=== PATIENT | female | born 1975 | race African-American/Black ===

== ENCOUNTER → 2016-10-30 | Outpatient (CLI) | payer OTHER | LOC: OD 07:59 | PROVIDERS: ATTEND Podiatrist Foot & Ankle Surgery | DX: M20.11 Hallux valgus (acquired), right foot (principal) ==

== ENCOUNTER 2016-11-21 09:54 | Day surgery (SDC) | payer OTHER ==
[2016-11-18 18:31] LABS: ABSOLUTE EOSINOPHILS # (AUTO) 0.2 10^3/uL (0.0-0.6); ABSOLUTE LYMPHOCYTES (AUTO) 3.3 10^3/uL (0.5-4.7); ABSOLUTE MONOCYTES (AUTO) 0.7 10^3/uL (0.1-1.4); ABSOLUTE NEUT (AUTO) 4.1 10^3/uL (1.7-8.2); BASOPHILS % (AUTO) 0.6 % (0-2); EOSINOPHILS % (AUTO) 2.9 % (0-6); HEMATOCRIT 37.9 % (36.0-47.0); HEMOGLOBIN 12.7 g/dL (12.0-15.5); HGB HCT DIFFERENCE 0.2; LYMPHOCYTES % (AUTO) 39.1 % (13-45); MEAN CORPUSCULAR HEMOGLOBIN 29.9 pg (27.0-33.4); MEAN CORPUSCULAR HGB CONC 33.4 g/dL (32.0-36.0); MEAN CORPUSCULAR VOLUME 89 fl (80-97); MONOCYTES % (AUTO) 8.6 % (3-13); RED BLOOD COUNT 4.24 10^6/uL (3.72-5.28); RED CELL DISTRIBUTION WIDTH 13.8 % (11.5-14.0); SEGMENTED NEUTROPHILS % (AUTO) 48.8 % (42-78); WHITE BLOOD COUNT 8.4 10^3/uL (4.0-10.5)
[2016-11-18 18:38] LABS: APPEARANCE,URINE SLIGHTLY-CLOUDY; BILIRUBIN,URINE NEGATIVE (NEGATIVE); GLUCOSE, URINE NEGATIVE (NEGATIVE); KETONES,URINE NEGATIVE (NEGATIVE); LEUKOCYTE ESTERASE,URINE NEGATIVE (NEGATIVE); NITRITE,URINE NEGATIVE (NEGATIVE); PROTEIN,URINE NEGATIVE (NEGATIVE); URINE SPECIFIC GRAVITY 1.016; UROBILINOGEN,URINE NEGATIVE mg/dL (<2.0)
[~2016-11-21 09:54] MED LIST: CEFAZOLIN 1 GM/D5W RTU 1 GM/50 ML RTUPB IV PRN; RINGERS SOLUTION,LACTATED 1,000 ML IV PRN
[2016-11-21] MEDS ORDERED: LIDOCAINE 2% INJ (20 MG/ML) 20 ML MDV ONE (10:53)
[2016-11-21] MEDS ORDERED: BUPIVACAINE HCL 0.5 % INJ/PF 30 ML SDV ONE (10:53)
[2016-11-21] MEDS ORDERED: MIDAZOLAM 2 MG/2 ML INJ ONE (11:05)
[2016-11-21] MEDS ORDERED: ACETAMINOPHEN 100 ML IV ONE (11:05)
[2016-11-21] MEDS ORDERED: ONDANSETRON HCL INJ/PF 4 MG/2 ML SDV ONE (11:05)
[2016-11-21] MEDS ORDERED: PROPOFOL INJ 200 MG/20 ML VIAL IV ONE (11:06)
[2016-11-21] MEDS ORDERED: CEFAZOLIN 1 GM/D5W RTU 1 GM/50 ML RTUPB IV ONE (13:31)
[2016-11-21] MEDS ORDERED: FENTANYL CITRATE INJ/PF 100 MCG/2 ML AMPUL ONE (13:56)
--- NOTE | 2016-11-21 15:48 | SURGICARE OPERATIVE REPORT E ---
[facility] Report NAME: JOSE ROBERTO DELGADILLO AGE: 41Y DATE OF SURGERY: 11/21/2016 ROOM: PREOPERATIVE DIAGNOSIS: SEVERE HALLUX ABDUCTOVALGUS DEFORMITY RIGHT FOOT. POSTOPERATIVE DIAGNOSIS: SEVERE HALLUX ABDUCTOVALGUS DEFORMITY RIGHT FOOT. OPERATION: Nils bunionectomy with external fixation first metatarsal head. Thaddeus osteotomy, base proximal phalanx with internal fixation right hallux. SURGEON: LILIANA GALICIA D.P.M. INTRAOPERATIVE FINDINGS: Intraoperative findings indicated severe dislocation of the first metatarsophalangeal joint. The hallux was in severe valgus rotation. The IM angle between the first and second metatarsals was not really very high, it was about 12 degrees. The articular facets of the base of the proximal phalanx and the head of the first metatarsal were relatively in good condition with very little arthritic changes. There was a hypertrophy of the medial eminence of the head of the first metatarsal. The bone density was also within normal limits. The deformity has developed due to severe semirigid flat foot. PROCEDURE: With the patient lying in the dorsal recumbent position, the right foot and leg were prepped and draped in the usual standard sterile orthopedic manner after the local anesthesia was administered which was a total ankle block. After the anesthetic effect was accomplished, the right leg was elevated for approximately 2 minutes' of time and the right ankle pneumatic tourniquet was inflated up to 250 mmHg after the blood was exsanguinated from the right foot. The right leg was brought to the level of the table. Attention was directed right over the first metatarsophalangeal joint. A curvilinear incision was placed right over the joint. The initial incision was deepened. The superficial and deep subcutaneous tissues were dissected with blunt and sharp dissection. This dissection was carried until the capsular structures were brought into the surgical field. At this point, the capital L inverted capsulotomy was performed. The long arm of the capsulotomy was medial and adjacent to extensor hallucis longus. The short arm ran in a medial inferior direction right over the joint. Capsule and periosteal structures were dissected of bone and at this point, the head of the first metatarsal was brought into the surgical field. The hypertrophic portion was resected and the head was remodeled to a more anatomical configuration. At this point, the healthy level of the joint was established. The cartilaginous surfaces were all normal with very mild arthritic changes. At this point, the osteotomy was performed. It was executed in the transverse plane and it was a chevron type of osteotomy with the apical portion facing the joint and the arms being angulated about 45 degrees to the long axis of the first metatarsal. Next, the heads were shifted lateral mckoy, repositioned, realigned and externally fixated with 0.062 K-wire. The wire did cross through the osteotomy, compacted it and precautions were taken for the wire not to be protruding into the joint. Next, attention was directed to the base of the proximal phalanx. The periosteal structures were dissected of bone and osteotomy was performed at the level of the base of the proximal phalanx. This was a closing wedge osteotomy with the apical portion of the wedge on the lateral cortex. The closing wedge was necessary to derotate the hallux in a more anatomical alignment. The closing wedge osteotomy, the first cut in the bone was parallel to the long axis of the proximal phalanx. The second cut was angulated sufficiently to be able to derotate the hallux in a more rectus position. Once the triangular wedge of bone was removed, the osteotomy was collapsed and was internally fixated utilizing a cortical screw 2.0 mm in diameter and 16 mm in length. The system utilized for the screw fixation was a [employer] system. After the successful internal fixation, there was a small gap created with its osteotomy which was next packed with bone chips. The surgical sites were irrigated with copious amounts of sterile saline. The capsular structures and periosteal structures were closed at both surgical sites. The type of suture utilized for the capsular and periosteal structures was 2-0 Vicryl. After that, the subcutaneous tissues from deep to superficial were closed with 3-0 Vicryl using continuous interlock stitch. Finally, the skin edges were repositioned and closed with 4-0 nylon using continuous interlock stitch. Betadine compression dressing was applied around the right foot, followed with an Andrés bandage and a surgical shoe. This patient tolerated the procedures well and left the operating room with stable vital signs and in good condition. The patient was taken to the recovery room alert, conscious and oriented. There are no permanent disabilities anticipated at this time. DICTATING PHYSICIAN: LILIANA GALICIA D.P.M. [id number] PHY#: [id number] ID: [id number] JOB#: [id number] ACCT: [id number] cc:LILIANA GALICIA D.P.M. >
== END 2016-11-21 14:51 | disposition home or self-care (01) ==
LOC: SC 09:54
PROVIDERS: ATTEND Podiatrist Foot & Ankle Surgery
DX: M20.11 Hallux valgus (acquired), right foot (principal); J30.2 Other seasonal allergic rhinitis; Z79.899 Other long term (current) drug therapy
CPT/HCPCS: 36415; 85025; 81001; 73620; 28298; C1713 ×2; J2250; J3490; J0690; J3010; J2405; J2704; J0131; 01480

== ENCOUNTER → 2016-12-04 | Outpatient (CLI) | payer OTHER | LOC: OD 10:19 | PROVIDERS: ATTEND Podiatrist Foot & Ankle Surgery | DX: Z98.890 Other specified postprocedural states (principal) ==

== ENCOUNTER 2016-12-14 11:55 | Emergency (ER) | payer OTHER ==
[2016-12-14] MEDS ORDERED: ACETAMINOPHEN 325 MG TABLET PO ONE (12:10)
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
[2016-12-14 13:48] VITALS: BP 136/78
== END 2016-12-14 13:48 | disposition home or self-care (01) ==
LOC: ER 11:55
DX: M54.2 Cervicalgia (principal); M54.9 Dorsalgia, unspecified; V87.7XXA Person injured in collision between other specified motor vehicles (traffic), initial encounter
CPT/HCPCS: 72050; 99283

== ENCOUNTER → 2017-01-06 | Outpatient (CLI) | payer OTHER ==
--- NOTE | 2017-01-06 10:27 | RADIOLOGY REPORT (SQ) ---
EXAM DESCRIPTION: FOOT RIGHT COMPLETE COMPLETED DATE/TIME: 01/06/2017 8:00 am REASON FOR STUDY: OTHER SPECIFIED POSTPROCEDURAL STATES Z98.890 OTHER SPECIFIED POSTPROCEDURAL STAT ES COMPARISON: 12/04/2016 NUMBER OF VIEWS: Three views. TECHNIQUE: AP, lateral and oblique radiographic images acquired of the right foot. LIMITATIONS: None. FINDINGS: MINERALIZATION: Normal. BONES: Osteotomy changes are seen in 1st metatarsal and 1st proximal phalanx. A long pin is present in the 1st metatarsal. A cannulated screw is present in the 1st proximal phalanx. The alignment kiara ears unchanged from the earlier study. There is some evidence of healing, but of course healing is n ot yet complete. JOINTS: No effusions. SOFT TISSUES: No soft tissue swelling. No foreign body. OTHER: No other significant finding. IMPRESSION: Stable surgical changes as described. TECHNICAL DOCUMENTATION: JOB ID: [id number] [email or web address]- All Rights Reserved
== END ==
LOC: OD 07:41
PROVIDERS: ATTEND Podiatrist Foot & Ankle Surgery
DX: Z98.890 Other specified postprocedural states (principal)

== ENCOUNTER → 2017-02-03 | Outpatient (CLI) | payer OTHER ==
--- NOTE | 2017-02-03 10:49 | RADIOLOGY REPORT (SQ) ---
EXAM DESCRIPTION: FOOT RIGHT COMPLETE COMPLETED DATE/TIME: 02/03/2017 9:53 am REASON FOR STUDY: OTHER SPECIFIED POSTPROCEDURAL STATES Z98.890 OTHER SPECIFIED POSTPROCEDURAL STAT ES COMPARISON: 01/06/2017 NUMBER OF VIEWS: Three views. TECHNIQUE: AP, lateral and oblique radiographic images acquired of the right foot. LIMITATIONS: None. FINDINGS: MINERALIZATION: Normal. BONES: A long pin has been removed from the 1st metatarsal. A screw remains present in 1st proximal phalanx. JOINTS: No effusions. SOFT TISSUES: No soft tissue swelling. No foreign body. OTHER: No other significant finding. IMPRESSION: Pin removal. TECHNICAL DOCUMENTATION: JOB ID: [id number] [employer]- All Rights Reserved
== END ==
LOC: OD 09:30
PROVIDERS: ATTEND Podiatrist Foot & Ankle Surgery
DX: Z98.890 Other specified postprocedural states (principal)

== ENCOUNTER 2018-10-27 01:15 | Emergency (ER) | payer OTHER ==
[2018-10-27] MEDS ORDERED: ONDANSETRON HCL INJ/PF 4 MG/2 ML SDV IV ONE (02:22)
[2018-10-27] MEDS ORDERED: KETOROLAC TROMETHAMINE INJ/PF 30 MG/1 ML SDV IV ONE (02:22)
[2018-10-27 02:29] LABS: ABSOLUTE BASOPHILS # (AUTO) 0.1 10^3/uL (0.0-0.2); ABSOLUTE EOSINOPHILS # (AUTO) 0.3 10^3/uL (0.0-0.6); ABSOLUTE LYMPHOCYTES (AUTO) 3.3 10^3/uL (0.5-4.7); ABSOLUTE MONOCYTES (AUTO) 0.8 10^3/uL (0.1-1.4); ABSOLUTE NEUT (AUTO) 5.9 10^3/uL (1.7-8.2); BASOPHILS % (AUTO) 0.6 % (0-2); EOSINOPHILS % (AUTO) 2.9 % (0-6); HEMATOCRIT 36.6 % (36.0-47.0); HEMOGLOBIN 12.6 g/dL (12.0-15.5); LYMPHOCYTES % (AUTO) 31.9 % (13-45); MEAN CORPUSCULAR HEMOGLOBIN 31.9 pg (27.0-33.4); MEAN CORPUSCULAR HGB CONC 34.3 g/dL (32.0-36.0); MEAN CORPUSCULAR VOLUME 93 fl (80-97); MONOCYTES % (AUTO) 8.1 % (3-13); PLATELET COUNT 324 10^3/uL (150-450); RED BLOOD COUNT 3.94 10^6/uL (3.72-5.28); RED CELL DISTRIBUTION WIDTH 12.3 % (11.5-14.0); SEGMENTED NEUTROPHILS % (AUTO) 56.5 % (42-78); TOTAL CELLS COUNTED % (AUTO) 100 %; WHITE BLOOD COUNT 10.4 10^3/uL (4.0-10.5)
[2018-10-27 02:42] LABS: ALANINE AMINOTRANSFERASE 31 U/L (9-52); ALBUMIN 4.3 g/dL (3.5-5.0); ALKALINE PHOSPHATASE 98 U/L (38-126); ANION GAP 9 (5-19); ASPARTATE AMINO TRANSFERASE 25 U/L (14-36); BILIRUBIN,DIRECT 0.2 mg/dL (0.0-0.4); BILIRUBIN,TOTAL 0.6 mg/dL (0.2-1.3); BLOOD UREA NITROGEN 15 mg/dL (7-20); CARBON DIOXIDE 25 mmol/L (22-30); CHLORIDE 107 mmol/L (98-107); GLUCOSE 101 mg/dL (75-110); LIPASE 201.5 U/L (23-300); POTASSIUM 3.7 mmol/L (3.6-5.0); SODIUM 140.8 mmol/L (137-145); TOTAL PROTEIN 7.2 g/dL (6.3-8.2)
[2018-10-27 02:53] LABS: APPEARANCE,URINE CLEAR; BILIRUBIN,URINE NEGATIVE (NEGATIVE); COLOR,URINE YELLOW; GLUCOSE, URINE NEGATIVE (NEGATIVE); KETONES,URINE NEGATIVE (NEGATIVE); LEUKOCYTE ESTERASE,URINE NEGATIVE (NEGATIVE); NITRITE,URINE NEGATIVE (NEGATIVE); PROTEIN,URINE NEGATIVE (NEGATIVE); URINE SPECIFIC GRAVITY 1.025; UROBILINOGEN,URINE NEGATIVE mg/dL (<2.0)
--- NOTE | 2018-10-27 05:12 | RADIOLOGY REPORT (SQ) ---
EXAM DESCRIPTION: CT ABDOMEN PELVIS WITHOUT IV CONTRAST COMPLETED DATE/TME: 10/27/2018 04:24 CLINICAL HISTORY: 43 years, Female, Hematuria, flank pain, rule out stone COMPARISON: None. TECHNIQUE: 318 Images stored on PACS. All CT scanners at this facility use dose modulation, iterative reconstruction, and/or weight based dosing when appropriate to reduce radiation dose to as low as reasonably achievable (ALARA). [facility]: Dose Right [facility]: CareDose [facility]: Dose Right [facility]: Teradose 4D [facility]: [employer] LIMITATIONS: None. FINDINGS: Is lung bases are unremarkable. Osseous structures are grossly intact. Limited evaluation of the liver, spleen, adrenal glands, pancreas is unremarkable. Punctate nonobstructing renal calculi bilaterally. The gallbladder is present. Mild left-sided hydronephrosis and hydroureter, secondary to an approximately 4.1 mm mid left ureteral calculus. IUD in place. Large amount stool in the colon. No free air or free fluid. Normal appendix IMPRESSION: Mild left hydroureteronephrosis secondary to a 4.1 mm mid left ureteral calculus. Other nonobstructing renal calculi bilaterally TECHNICAL DOCUMENTATION: Quality ID # [id number]: Final reports with documentation of one or more dose reduction techniques (e.g., Automated exposure control, adjustment of the mA and/or kV according to patient size, use of iterative reconstruction technique) copyright 2011 [employer]- All Rights Reserved
[2018-10-27] MEDS ORDERED: ACETAMINOPHEN 325 MG TABLET PO ONE (05:13)
[2018-10-27] MEDS ORDERED: ONDANSETRON ODT 4 MG TAB (6 TAB/ER DISP) PO PRN (05:30)
[2018-10-27] MEDS ORDERED: HYDROCODONE/ACETAMINOPHEN 5-325 MG (6 TAB/ER DISP) PO PRN (05:30)
[2018-10-27] MEDS ORDERED: TAMSULOSIN HCL 0.4 MG CAP.SR.24H PO ONE (05:30)
--- NOTE | 2018-10-27 05:37 | ER Document Report ---
ED General - General Chief Complaint: Upper Abdominal Pain Stated Complaint: ABDOMINAL PAIN/BACK PAIN Time Seen by Provider: 10/27/18 01:57 TRAVEL OUTSIDE OF THE [place] IN LAST 30 DAYS: No - HPI Notes: Patient presents to the emergency department for evaluation. Over the last several days she has had abdominal and back pain. She described it as sharp and stabbing. She states this started as abdominal pain. She noticed it on Thursday. On Thursday she just laid around in bed. She states she felt bloated. She thought it could be constipation. She took Gas-X and magnesium citrate. She had a large bowel movement which she believed helped her pain somewhat. Unfortunately her pain came back, with radiation around to the back. She denies any fevers or chills. She has had nausea but no emesis. She states she had normal bowel movements since the magnesium citrate. She denies any urinary symptoms. She states she has a history of kidney stones, but states that this does not feel like her kidney stones at all. - Related Data Allergies/Adverse Reactions: propoxyphene [From Darvocet-N] Allergy (Severe, Verified 10/27/18 01:16) Difficulty breathing caffeine [Caffeine] Allergy (Intermediate, Verified 10/27/18 01:16) ITCHY THROAT chocolate flavor Allergy (Verified 10/27/18 01:16) DYSPNEA, THROAT ITCHES,RASH Past Medical History - General Information source: Patient - Social History Smoking Status: Never Smoker Chew tobacco use (# tins/day): No Frequency of alcohol use: None Drug Abuse: None Family History: Reviewed & Not Pertinent Patient has suicidal ideation: No Patient has homicidal ideation: No - Past Medical History Cardiac Medical History: 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 Denies: Hx Ovarian Cysts, Hx Peritoneal Dialysis, Hx Pelvic Inflammatory Disease Malignancy Medical History: Denies: Hx Breast Cancer, Hx Cervical Cancer, Hx Ovarian Cancer GI Medical History: Reports: Hx Gastroesophageal Reflux Disease. Denies: Hx Hepatitis, Hx Hiatal Hernia, Hx Ulcer Musculoskeletal Medical History: Denies Hx Fibromyalgia Traumatic Medical History: Reports: Hx Fractures - rt ankle 15 yrs ago Infectious Medical History: Denies: Hx Hepatitis, Hx HIV Past Surgical History: Reports: Hx Section. Denies: Hx Hysterectomy, Hx Mastectomy, Hx Open Heart Surgery, Hx Pacemaker - Immunizations Hx Diphtheria, Pertussis, Tetanus Vaccination: Yes Hx Pneumococcal Vaccination: 07/27/08 Review of Systems - Review of Systems Constitutional: No symptoms reported EENT: No symptoms reported Cardiovascular: No symptoms reported Respiratory: No symptoms reported Gastrointestinal: See HPI Genitourinary: No symptoms reported Musculoskeletal: See HPI Skin: No symptoms reported Neurological/Psychological: No symptoms reported Physical Exam - Vital signs Vitals: Temp Pulse Resp BP Pulse Ox 98.2 F 89 18 149/100 H 98 10/27/18 01:22 10/27/18 01:22 10/27/18 01:22 10/27/18 01:22 10/27/18 01:22 - Notes Notes: Vital signs reviewed, please refer to chart. Patient is normocephalic, atraumatic. Pupils equal round, reactive to light. Neck is supple without meningismus. Heart is regular rate and rhythm. Lungs are clear to auscultation bilaterally. Abdomen is soft, mild left upper quadrant tenderness without r ebound or guarding, normoactive bowel sounds throughout. Extremities without cyanosis, clubbing, edema. Peripheral pulses are equal. Skin is warm and dry. Patient is awake, alert, neurological exam is nonfocal. Examination of the spine is no midline tenderness or step-off. Patient has paraspinal musculature tenderness noted from approximately T3 through T8 bilaterally. Course - Re-evaluation Re-evalutation: 10/27/18 05:38 Patient presents to the emergency department for evaluation. Laboratory investigations, medication ordered as listed. Patient had moderate improvement with the Toradol. Laboratory investigations were remarkable only for hematuria. At first I suspected that the patient may be getting ready to heart menstruation. She has had an IUD and has irregular periods. Because her pain was in her abdomen with radiation to the back, decision was made to evaluate with CT scan. CT scan did reveal an obstructive ureteral stone. Patient was medicated here with Flomax. We will send her home with pain medication, nausea medication, Flomax. She is to follow-up with primary care, return to the emergency department with worsening or new concerning symptoms. - Vital Signs Vital signs: Temp Pulse Resp BP Pulse Ox 98.2 F 89 18 138/88 H 100 10/27/18 01:22 10/27/18 01:22 10/27/18 01:22 10/27/18 05:12 10/27/18 05:12 - Laboratory Result Diagrams: 10/27/18 02:19 10/27/18 02:19 Laboratory results interpreted by me: 10/27/18 02:19 Urine Blood MODERATE H - Diagnostic Test Radiology reviewed: Reports reviewed - 4 mm obstructing ureterolithiasis on the left Discharge - Discharge Clinical Impression: Urinary tract obstruction by kidney stone Condition: Stable Disposition: HOME, SELF-CARE Instructions: Kidney Stone ([facility]) Additional Instructions: Rest, stay well-hydrated. Take medications as prescribed. If you develop fevers, intractable vomiting, or any other new or concerning symptoms, return immediately to the emergency department for evaluation. Otherwise, follow-up with your primary care physician next week.
[2018-10-27 06:03] VITALS: BP 151/91
== END 2018-10-27 06:05 | disposition home or self-care (01) ==
LOC: ER 01:15
DX: N13.2 Hydronephrosis with renal and ureteral calculous obstruction (principal); R10.9 Unspecified abdominal pain; R10.812 Left upper quadrant abdominal tenderness; M54.9 Dorsalgia, unspecified; R11.0 Nausea; Z97.5 Presence of (intrauterine) contraceptive device
CPT/HCPCS: 99284; 96374; 36415; 83690; 85025; 81025; 80053; 81001; 74176; J1885

== ENCOUNTER → 2019-02-19 | Outpatient (CLI) | payer OTHER ==
[2019-02-19 09:38] LABS: ABSOLUTE BASOPHILS # (AUTO) 0.1 10^3/uL (0.0-0.2); ABSOLUTE EOSINOPHILS # (AUTO) 0.1 10^3/uL (0.0-0.6); ABSOLUTE MONOCYTES (AUTO) 0.7 10^3/uL (0.1-1.4); ABSOLUTE NEUT (AUTO) 4.5 10^3/uL (1.7-8.2); BASOPHILS % (AUTO) 0.7 % (0-2); EOSINOPHILS % (AUTO) 1.8 % (0-6); HEMATOCRIT 37.6 % (36.0-47.0); HEMOGLOBIN 12.8 g/dL (12.0-15.5); LYMPHOCYTES % (AUTO) 26.9 % (13-45); MEAN CORPUSCULAR HEMOGLOBIN 31.2 pg (27.0-33.4); MEAN CORPUSCULAR VOLUME 92 fl (80-97); MONOCYTES % (AUTO) 9.6 % (3-13); PLATELET COUNT 283 10^3/uL (150-450); RED CELL DISTRIBUTION WIDTH 12.7 % (11.5-14.0); TOTAL CELLS COUNTED % (AUTO) 100 %; WHITE BLOOD COUNT 7.4 10^3/uL (4.0-10.5)
[2019-02-19 09:45] LABS: APPEARANCE,URINE SLIGHTLY-CLOUDY; BILIRUBIN,URINE NEGATIVE (NEGATIVE); COLOR,URINE YELLOW; GLUCOSE, URINE NEGATIVE (NEGATIVE); KETONES,URINE NEGATIVE (NEGATIVE); LEUKOCYTE ESTERASE,URINE LARGE (NEGATIVE); NITRITE,URINE NEGATIVE (NEGATIVE); PROTEIN,URINE NEGATIVE (NEGATIVE); UROBILINOGEN,URINE NEGATIVE mg/dL (<2.0)
[2019-02-19 09:50] LABS: ALANINE AMINOTRANSFERASE 25 U/L (9-52); ALBUMIN 4.4 g/dL (3.5-5.0); ALKALINE PHOSPHATASE 80 U/L (38-126); ANION GAP 10 (5-19); ASPARTATE AMINO TRANSFERASE 22 U/L (14-36); BILIRUBIN,DIRECT 0.2 mg/dL (0.0-0.4); BILIRUBIN,TOTAL 0.8 mg/dL (0.2-1.3); BLOOD UREA NITROGEN 13 mg/dL (7-20); CALCIUM 9.5 mg/dL (8.4-10.2); CARBON DIOXIDE 24 mmol/L (22-30); CHLORIDE 105 mmol/L (98-107); CHOLESTEROL 157.72 mg/dL (0-200); GLUCOSE 94 mg/dL (75-110); POTASSIUM 4.2 mmol/L (3.6-5.0); TOTAL PROTEIN 7.1 g/dL (6.3-8.2); TRIGLYCERIDES 62 mg/dL (<150)
[2019-02-19 10:01] LABS: DIRECT LDL 102 mg/dL (<100)
== END ==
LOC: OD 08:04
PROVIDERS: ATTEND Family Medicine
DX: R03.0 Elevated blood-pressure reading, without diagnosis of hypertension (principal)
CPT/HCPCS: 36415; 80053; 80061; 81001; 84443; 85025

== ENCOUNTER → 2019-05-24 | Outpatient (CLI) | payer OTHER ==
[2019-05-24 15:38] LABS: ANION GAP 16 (5-19); BLOOD UREA NITROGEN 12 mg/dL (7-20); CALCIUM 10.4 mg/dL (8.4-10.2); CARBON DIOXIDE 24 mmol/L (22-30); CHLORIDE 104 mmol/L (98-107); GLUCOSE 78 mg/dL (75-110); POTASSIUM 4.4 mmol/L (3.6-5.0)
== END ==
LOC: OD 13:32
PROVIDERS: ATTEND Family Medicine
DX: I10 Essential (primary) hypertension (principal)
CPT/HCPCS: 36415; 80048

== ENCOUNTER 2019-09-23 10:40 | Emergency (ER) | payer OTHER ==
[2019-09-23] MEDS ORDERED: ONDANSETRON HCL INJ/PF 4 MG/2 ML SDV IV ONE (10:51)
[2019-09-23] MEDS ORDERED: NORMAL SALINE 1000 ML 1,000 ML IV ONE (10:51)
[2019-09-23] MEDS ORDERED: MORPHINE SULFATE 10 MG/ML INJ IV ONE (10:51)
[2019-09-23] MEDS ORDERED: TAMSULOSIN HCL 0.4 MG CAP.SR.24H PO ONE (10:51)
--- NOTE | 2019-09-23 10:53 | ER Document Report ---
ED Medical Screen (RME) - General Chief Complaint: Possible Kidney Stone Stated Complaint: ABDOMINAL PAIN Time Seen by Provider: 09/23/19 10:47 Primary Care Provider: ODALIS BARNEY MD [Primary Care Provider] - Follow up as needed TRAVEL OUTSIDE OF THE [place] IN LAST 30 DAYS: No - HPI Notes: 09/23/19 10:52 Patient is a 44-year-old female with history of kidney stones who presents complaining of sudden onset left flank pain that began this morning with nausea, vomiting, and trouble urinating. This does feel similar to previous kidney stones. She was given 60 mg of Toradol IM as well as Phenergan at the family doctor's office prior to arrival. No fever, chest pain, shortness of breath. I have treated and performed a rapid initial assessment of this patient. A comprehensive ED assessment and evaluation of the patient, analysis of test results and completion of medical decision making process will be conducted by additional ED providers. PHYSICAL EXAMINATION: GENERAL: Well-appearing, well-nourished and in no acute distress. A&Ox4. Answers questions appropriately. Abd: Limited exam in triage. Grossly nontender to palpation. Left CVA tenderness noted. 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 Denies: Hx Ovarian Cysts, Hx Peritoneal Dialysis, Hx Pelvic Inflammatory Disease Malignancy Medical History: Denies: Hx Breast Cancer, Hx Cervical Cancer, Hx Ovarian Cancer GI Medical History: Reports: Hx Gastroesophageal Reflux Disease. Denies: Hx Hepatitis, Hx Hiatal Hernia, Hx Ulcer Musculoskeltal Medical History: Denies Hx Fibromyalgia Traumatic Medical History: Reports: Hx Fractures - rt ankle 15 yrs ago Infectious Medical History: Denies: Hx Hepatitis, Hx HIV Past Surgical History: Reports: Hx Section. Denies: Hx Hysterectomy, Hx Mastectomy, Hx Open Heart Surgery, Hx Pacemaker - Immunizations Hx Diphtheria, Pertussis, Tetanus Vaccination: Yes Physical Exam - Vital signs Vitals: Temp Pulse Resp BP Pulse Ox 97.5 F 81 18 133/83 H 100 09/23/19 10:44 09/23/19 10:44 09/23/19 10:44 09/23/19 10:44 09/23/19 10:44 Course - Vital Signs Vital signs: Temp Pulse Resp BP Pulse Ox 97.5 F 81 18 133/83 H 100 09/23/19 10:44 09/23/19 10:44 09/23/19 10:44 09/23/19 10:44 09/23/19 10:44 Doctor's Discharge - Discharge Referrals: ODALIS BARNEY MD [Primary Care Provider] - Follow up as needed
[2019-09-23 11:54] LABS: ABSOLUTE LYMPHOCYTES (AUTO) 1.2 10^3/uL (0.5-4.7); ABSOLUTE MONOCYTES (AUTO) 0.6 10^3/uL (0.1-1.4); ABSOLUTE NEUT (AUTO) 8.2 10^3/uL (1.7-8.2); BASOPHILS % (AUTO) 0.3 % (0-2); EOSINOPHILS % (AUTO) 0.1 % (0-6); HEMATOCRIT 39.6 % (36.0-47.0); LYMPHOCYTES % (AUTO) 11.6 % (13-45); MEAN CORPUSCULAR HEMOGLOBIN 32.3 pg (27.0-33.4); MEAN CORPUSCULAR HGB CONC 35.3 g/dL (32.0-36.0); MEAN CORPUSCULAR VOLUME 92 fl (80-97); MONOCYTES % (AUTO) 5.7 % (3-13); PLATELET COUNT 300 10^3/uL (150-450); RED BLOOD COUNT 4.33 10^6/uL (3.72-5.28); RED CELL DISTRIBUTION WIDTH 12.6 % (11.5-14.0); SEGMENTED NEUTROPHILS % (AUTO) 82.3 % (42-78); TOTAL CELLS COUNTED % (AUTO) 100 %; WHITE BLOOD COUNT 9.9 10^3/uL (4.0-10.5)
[2019-09-23 12:22] LABS: ALBUMIN 4.6 g/dL (3.5-5.0); ALKALINE PHOSPHATASE 86 U/L (38-126); ANION GAP 12 (5-19); ASPARTATE AMINO TRANSFERASE 20 U/L (14-36); BILIRUBIN,TOTAL 0.7 mg/dL (0.2-1.3); BLOOD UREA NITROGEN 14 mg/dL (7-20); CALCIUM 9.6 mg/dL (8.4-10.2); CARBON DIOXIDE 25 mmol/L (22-30); CHLORIDE 103 mmol/L (98-107); GLUCOSE 96 mg/dL (75-110); POTASSIUM 3.7 mmol/L (3.6-5.0); TOTAL PROTEIN 7.8 g/dL (6.3-8.2)
[2019-09-23 12:23] LABS: APPEARANCE,URINE CLOUDY; BILIRUBIN,URINE NEGATIVE (NEGATIVE); COLOR,URINE YELLOW; GLUCOSE, URINE NEGATIVE (NEGATIVE); KETONES,URINE 80 mg/dL (NEGATIVE); PROTEIN,URINE 100 mg/dL (NEGATIVE); URINE SPECIFIC GRAVITY 1.027; UROBILINOGEN,URINE NEGATIVE mg/dL (<2.0)
--- NOTE | 2019-09-23 12:34 | ER Document Report ---
ED General - General Chief Complaint: Possible Kidney Stone Stated Complaint: ABDOMINAL PAIN Time Seen by Provider: 09/23/19 10:47 Primary Care Provider: ARON MOELLER MD [NO LOCAL MD] - Follow up as needed PATRICIO CUEVAS MD [NO LOCAL MD] - Follow up as needed ODALIS BARNEY MD [Primary Care Provider] - Follow up as needed Mode of Arrival: Ambulatory Information source: Patient Notes: 44-year-old female with history of kidney stones presents emergency department complaints of left-sided flank pain that started today. Patient reports she vomited several times to the pain. She denies fever diarrhea. She reports she has had kidney stones couple times in her life. She reports she does not not drink Mountain Dew or tea any longer. She is days strictly with water. She denies pain with void but she reports her urine looked really dark. TRAVEL OUTSIDE OF THE [place] IN LAST 30 DAYS: No - HPI Onset: This morning Onset/Duration: Sudden Quality of pain: Pressure, Sharp Severity: Severe Associated symptoms: Nausea, Vomiting Exacerbated by: Denies Relieved by: Denies Similar symptoms previously: Yes Recently seen / treated by doctor: Yes - Related Data Allergies/Adverse Reactions: propoxyphene [From Darvocet-N] Allergy (Severe, Verified 09/23/19 10:46) Difficulty breathing caffeine [Caffeine] Allergy (Intermediate, Verified 09/23/19 10:46) ITCHY THROAT chocolate flavor Allergy (Verified 09/23/19 10:46) DYSPNEA, THROAT ITCHES,RASH Past Medical History - General Information source: Patient - Social History Smoking Status: Never Smoker Family History: Reviewed & Not Pertinent Patient has suicidal ideation: No Patient has homicidal ideation: No - Past Medical History Cardiac Medical History: 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 Denies: Hx Ovarian Cysts, Hx Peritoneal Dialysis, Hx Pelvic Inflammatory Disease Malignancy Medical History: Denies: Hx Breast Cancer, Hx Cervical Cancer, Hx Ovarian Cancer GI Medical History: Reports: Hx Gastroesophageal Reflux Disease. Denies: Hx Hepatitis, Hx Hiatal Hernia, Hx Ulcer Musculoskeletal Medical History: Denies Hx Fibromyalgia Traumatic Medical History: Reports: Hx Fractures - rt ankle 15 yrs ago Infectious Medical History: Denies: Hx Hepatitis, Hx HIV Past Surgical History: Reports: Hx Section. Denies: Hx Hysterectomy, Hx Mastectomy, Hx Open Heart Surgery, Hx Pacemaker - Immunizations Hx Diphtheria, Pertussis, Tetanus Vaccination: Yes Hx Pneumococcal Vaccination: 07/27/08 Physical Exam - Vital signs Vitals: Temp Pulse Resp BP Pulse Ox 97.5 F 81 18 133/83 H 100 09/23/19 10:44 09/23/19 10:44 09/23/19 10:44 09/23/19 10:44 09/23/19 10:44 Course - Re-evaluation Re-evalutation: 09/23/19 14:22 44-year-old female with history of kidney stones presents emergency department with complaints of left flank pain that started this morning with some vomiting. Labs unremarkable. CT does show kidney stones. Patient will be discharged with pain medication and Flomax instructed to follow-up with urology. Laboratory 09/23/19 09/23/19 09/23/19 11:38 11:38 11:38 WBC 9.9 RBC 4.33 Hgb 14.0 Hct 39.6 MCV 92 MCH 32.3 MCHC 35.3 RDW 12.6 Plt Count 300 Lymph % (Auto) 11.6 L [place] % (Auto) 5.7 Eos % (Auto) 0.1 Baso % (Auto) 0.3 Absolute Neuts (auto) 8.2 Absolute Lymphs (auto) 1.2 Absolute Monos (auto) 0.6 Absolute Eos (auto) 0.0 Absolute Basos (auto) 0.0 Seg Neutrophils % 82.3 H Sodium 140.3 Potassium 3.7 Chloride 103 Carbon Dioxide 25 Anion Gap 12 BUN 14 Creatinine 0.62 Est GFR ( Amer) > 60 Est GFR (MDRD) Non-Af > 60 Glucose 96 Calcium 9.6 Total Bilirubin 0.7 Direct Bilirubin 0.0 Neonat Total Bilirubin Not Reportable Neonat Direct Bilirubin Not Reportable Neonat Indirect Bili Not Reportable AST 20 ALT 17 Alkaline Phosphatase 86 Total Protein 7.8 Albumin 4.6 Lipase 72.9 Serum HCG, Qual NEGATIVE Urine Color Urine Appearance Urine pH Ur Specific [place] Urine Protein Urine Glucose (UA) Urine Ketones Urine Blood Urine Nitrite (Reflex) Urine Bilirubin Urine Urobilinogen Leukocyte Esterase Rfl Urine RBC (Auto) Urine Bacteria (Auto) Urine WBC (Reflex) Squamous Epi Cells Auto Urine Mucus (Auto) Urine Ascorbic Acid 09/23/19 12:08 WBC RBC Hgb Hct MCV MCH MCHC RDW Plt Count Lymph % (Auto) [place] % (Auto) Eos % (Auto) Baso % (Auto) Absolute Neuts (auto) Absolute Lymphs (auto) Absolute Monos (auto) Absolute Eos (auto) Absolute Basos (auto) Seg Neutrophils % Sodium Potassium Chloride Carbon Dioxide Anion Gap BUN Creatinine Est GFR ( Amer) Est GFR (MDRD) Non-Af Glucose Calcium Total Bilirubin Direct Bilirubin Neonat Total Bilirubin Neonat Direct Bilirubin Neonat Indirect Bili AST ALT Alkaline Phosphatase Total Protein Albumin Lipase Serum HCG, Qual Urine Color YELLOW Urine Appearance CLOUDY Urine pH 8.0 Ur Specific [place] 1.027 Urine Protein 100 H Urine Glucose (UA) NEGATIVE Urine Ketones 80 H Urine Blood LARGE H Urine Nitrite (Reflex) NEGATIVE Urine Bilirubin NEGATIVE Urine Urobilinogen NEGATIVE Leukocyte Esterase Rfl SMALL H Urine RBC (Auto) >182 Urine Bacteria (Auto) TRACE Urine WBC (Reflex) 4 Squamous Epi Cells Auto 8 Urine Mucus (Auto) MANY Urine Ascorbic Acid NEGATIVE Abdomen/Pelvis CT 09/23/19 10:51 IMPRESSION: 1. 3 mm obstructing stone within the left mid ureter with mild ful lness of the proximal collecting system. Additional 4.6 mm stone at the level of the ureteral vesicular junction compatible with additional ureteral stone. This has progressed since scan dated 10/27/2018. 2. Additional punctate bilateral nonobstructing stones. 09/23/19 14:26 - Vital Signs Vital signs: Temp Pulse Resp BP Pulse Ox 98.1 F 85 16 128/76 H 100 09/23/19 15:00 09/23/19 15:00 09/23/19 15:00 09/23/19 15:00 09/23/19 15:00 - Laboratory Result Diagrams: 09/23/19 11:38 09/23/19 11:38 Laboratory results interpreted by me: 09/23/19 09/23/19 11:38 12:08 Lymph % (Auto) 11.6 L Seg Neutrophils % 82.3 H Urine Protein 100 H Urine Ketones 80 H Urine Blood LARGE H Leukocyte Esterase Rfl SMALL H - Diagnostic Test Radiology reviewed: Reports reviewed Discharge - Discharge Clinical Impression: Flank pain, Kidney stones Condition: Stable Disposition: HOME, SELF-CARE Instructions: Antinausea Medication ([facility]), Flank Pain ([facility]), Flomax ([facility]), Kidney Stone ([facility]), Oral Narcotic Medication ([facility]), Pain Medication Injection ([facility]) Additional Instructions: *You have been evaluated for flank pain, kidney stones *Take medication as prescribed *Follow up with a primary care provider within one week for referral to u rologist *Return to ED for worsening condition, changes, needs, concerns, fever, worsening pain *Return to ED if not better in 24 hours Monitor your blood pressure. Your blood pressure was elevated today. This may be because you were anxious, in pain or because you need medication. It is important to follow up with your primary care provider for full evaluation. Prescriptions: Tamsulosin HCl [Flomax 0.4 mg Cap.sr] 0.4 mg PO DAILY #7 cap.sr.24h Oxycodone HCl/Acetaminophen [Percocet 5-325 mg Tablet] 1 tab PO Q6H PRN #15 tab PRN Reason: Forms: Elevated Blood Pressure Referrals: ODALIS BARNEY MD [Primary Care Provider] - Follow up as needed ARON MOELLER MD [NO LOCAL MD] - Follow up as needed PATRICIO CUEVAS MD [NO LOCAL MD] - Follow up as needed
[2019-09-23] MEDS ORDERED: FENTANYL CITRATE INJ/PF 100 MCG/2 ML AMPUL IV ONE (12:53)
--- NOTE | 2019-09-23 13:53 | RADIOLOGY REPORT (SQ) ---
EXAM DESCRIPTION: CT ABD/PELVIS NO ORAL OR IV COMPLETED DATE/TIME: 09/23/2019 1:26 pm REASON FOR STUDY: Left flank pain, dysuria COMPARISON: 10/27/2018 TECHNIQUE: CT scan of the abdomen and pelvis performed without intravenous or oral contrast. Images reviewed with lung, soft tissue, and bone windows. Reconstructed coronal and sagittal MPR images revi ewed. All images stored on PACS. All CT scanners at this facility use dose modulation, iterative reconstruction, and/or weight based d osing when appropriate to reduce radiation dose to as low as reasonably achievable (ALARA). [facility]: Dose Right [facility]: CareDose [facility]: Dose Right [facility]: Teradose 4D [facility]: Smart [employer] RADIATION DOSE: CT Rad equipment meets quality standard of care and radiation dose reduction techniq ues were employed. CTDIvol: 11.7 mGy. DLP: 634 mGy-cm.mGy. LIMITATIONS: None. FINDINGS: LOWER CHEST: No significant findings. No nodules or infiltrates. NON-CONTRASTED LIVER, SPLEEN, ADRENALS: Evaluation limited by lack of IV contrast. No identified sign ificant masses. PANCREAS: No masses. No peripancreatic inflammatory changes. GALLBLADDER: No identified stones by CT criteria. No inflammatory changes to suggest cholecystitis. RIGHT KIDNEY AND URETER: No suspicious masses. Assessment limited by lack of IV contrast. Few punct ate nonobstructing stones, largest within the upper pole measuring 3 mm. No hydronephrosis or hydro ureter. LEFT KIDNEY AND URETER: No suspicious masses. Assessment limited by lack of IV contrast. Scattered punctate stones. There is is a 3 mm stone within the mid ureter or with mild associated fullness of the collecting system and proximal ureter. Additional calcific density within the region of the left ureteral vesicular junction measuring 4.6 mm suspicious for additional distal ureteral stone, this a ppears progressed from CT dated 10/27/2018. AORTA AND RETROPERITONEUM: No aneurysm. No retroperitoneal masses or adenopathy. BOWEL AND PERITONEAL CAVITY: No obvious masses or inflammatory changes. No free fluid. APPENDIX: Normal. PELVIS, BLADDER, AND ABDOMINAL WALL:Decompressed urinary bladder. Intrauterine device within the [place] rine canal. No pelvic free fluid or adenopathy. Subcutaneous gas and stranding along the left glute al soft tissues, likely from subcutaneous injection. BONES: No acute bony abnormality. No suspicious osseous lesions. OTHER: No other significant finding. IMPRESSION: 1. 3 mm obstructing stone within the left mid ureter with mild fullness of the proximal collecting system. Additional 4.6 mm stone at the level of the ureteral vesicular junction compatib le with additional ureteral stone. This has progressed since scan dated 10/27/2018. 2. Additional punctate bilateral nonobstructing stones. COMMENT: Quality ID # [id number]: Final reports with documentation of one or more dose reduction techniques (e.g., Automated exposure control, adjustment of the mA and/or kV according to patient size, use of iterative reconstruction technique) TECHNICAL DOCUMENTATION: JOB ID: [id number] 2010 [employer]- All Rights Reserved Reading location - IP/workstation name: [email or web address]
[2019-09-23] MEDS ORDERED: ONDANSETRON ODT 4 MG TAB (6 TAB/ER DISP) PO PRN (14:31)
[2019-09-23 15:01] VITALS: BP 128/76
== END 2019-09-23 15:01 | disposition home or self-care (01) ==
LOC: ER 10:40
DX: N20.0 Calculus of kidney (principal); R10.9 Unspecified abdominal pain; R11.2 Nausea with vomiting, unspecified; Z87.442 Personal history of urinary calculi
CPT/HCPCS: 99284; 96361; 96374; 96375; 36415; 87086; 83690; 84703; 85025; 80053; 81001; 74176; J3010; J2270; J2405; J7030

== ENCOUNTER → 2020-03-20 | Outpatient (CLI) | payer OTHER ==
[2020-03-20 09:54] LABS: ANION GAP 7 (5-19); BLOOD UREA NITROGEN 20 mg/dL (7-20); CALCIUM 9.8 mg/dL (8.4-10.2); CARBON DIOXIDE 30 mmol/L (22-30); CHLORIDE 102 mmol/L (98-107); GLUCOSE 103 mg/dL (75-110); POTASSIUM 4.8 mmol/L (3.6-5.0)
== END ==
LOC: OD 07:50
PROVIDERS: ATTEND Family Medicine
DX: I10 Essential (primary) hypertension (principal)
CPT/HCPCS: 36415; 80048